=== PATIENT | male | born 1995 | race Caucasian/White ===

== ENCOUNTER 2019-09-11 09:17 | Emergency (ER) | payer OTHER ==
[~2019-09-11] VITALS: Ht 175.3 cm; Wt 82.7 kg
[2019-09-11] MEDS ORDERED: HM I200C PO (09:24)
[2019-09-11] MEDS ORDERED: ONDANSETRON 4MG/2ML VIAL (J2405) IV ONE (10:00)
[2019-09-11] MEDS ORDERED: diphenhydrAMINE INJ 50MG/ML VIAL (J1200) IV ONE (10:00)
[2019-09-11] MEDS ORDERED: NS 1,000 ML IV ONE (10:00)
[2019-09-11] MEDS ORDERED: KETOROLAC 30 MG/ML VIAL (J1885) IV ONE (10:00)
--- NOTE | 2019-09-11 10:26 | REP ---
INDICATION: Head trauma, severe headache. PROCEDURE: CT head without contrast. COMPARISON STUDIES: No prior similar studies. FINDINGS: No acute bleed or fracture. Ventricles, cisterns and sulci within normal limits. No mass effect or midline shift. No abnormal fluid collections. There is opacification of right-sided ethmoid air cells. The remainder of the paranasal sinuses and mastoid air cells are clear. IMPRESSION: No acute findings. No acute bleed or fracture. Electronically Signed by Richy Lynne MD 09/11/2019 10:18 A
--- NOTE | 2019-09-11 10:29 | REP ---
INDICATION: Head trauma. PROCEDURE: CT cervical spine without contrast. COMPARISON STUDIES: No prior similar studies. FINDINGS: No evidence of fracture or subluxation. Vertebral heights and disc heights appear well preserved. No malalignments. Soft tissues appear unremarkable. IMPRESSION: No acute findings. Unremarkable CT cervical spine. Electronically Signed by Richy Lynne MD 09/11/2019 10:21 A
[2019-09-11] MEDS ORDERED: IMIT50TA PO (11:25)
[2019-09-11 11:32] VITALS: BP 121/72
== END 2019-09-11 11:35 | disposition home or self-care (01) ==
LOC: M ED 09:17
DX: R51 Headache (principal); Z91.030 Bee allergy status; Z79.899 Other long term (current) drug therapy
CPT/HCPCS: 70450; 72125; 96361; 96374; 96375; 99284; J1200; J1885; J2405